=== PATIENT | female | born 1985 | race African-American/Black ===

== ENCOUNTER 2017-05-28 10:31 | Emergency (ER) | payer MEDICAID ==
[2017-05-28 11:35] VITALS: BP 143/99
--- NOTE | 2017-05-28 19:29 | ER Document Report ---
ED Medical Screen (RME) - General Chief Complaint: Possible Overdose Stated Complaint: POSSIBLE OVERDOSE Time Seen by Provider: 05/28/17 10:46 Notes: Patient was found passed out and unresponsive. She was reportedly shooting heroin and she says that she was also taking Xanax.. EMS was called to the scene and gave the patient Narcan 0.5 mg twice at (late entry due to computer/Dragon malfunction at time patient was seen on 2017) . . . at 10:12 and 10:20 am. Patient is awake and alert now and has remained so since receiving Narcan. Patient does not want to be seen, examined, or treated further. She says she just wants to leave. I talked to patient enough to establish that I think she is mentally capable and competent to make decisions about her state of health and her healthcare. I explained to her that she could leave without further care, but that she might leave and pass out again and without proper medical care, she could . Patient understands the risks and still wishes to leave against medical advice, without further workup or care. Abdulkadir Dawkins MD TRAVEL OUTSIDE OF THE [place] IN LAST 30 DAYS: No - Related Data Allergies/Adverse Reactions: hydrocodone [Hydrocodone] Allergy (Severe, Verified 09/04/13 02:32) Anaphylaxis latex Allergy (Unknown, Verified 09/04/13 02:32) Penicillins Allergy (Unknown, Verified 09/04/13 02:32) aloe vera [Aloe Vera] Allergy (Verified 09/04/13 02:32) tight throat citric acid [Citric Acid] Allergy (Verified 09/04/13 02:32) codeine [Codeine] Allergy (Verified 09/04/13 02:32) tight throat tramadol HCl [From Ultram] Allergy (Verified 09/04/13 02:32) peanut butter Allergy (Uncoded 09/04/13 00:48) tight throat Past Medical History - Social History Chew tobacco use (# tins/day): No Frequency of alcohol use: None Drug Abuse: None Family history: Reviewed & Not Pertinent Pulmonary Medical History: Reports: Hx Bronchitis Renal/ Medical History: Denies: Hx Peritoneal Dialysis Skin Medical History: Denies Hx Cellulitis, Denies Hx MRSA Psychiatric Medical History: Reports: Hx Attention Deficit Hyperactivity Disorder, Hx Bipolar Disorder Traumatic Medical History: Reports: Hx Fractures - left him, right shoulder Past Surgical History: Reports: Hx Section, Hx Orthopedic Surgery - left leg - Immunizations Hx Diphtheria, Pertussis, Tetanus Vaccination: Yes Physical Exam - Vital signs Vitals: Temp Resp Pulse Ox 97.4 F 27 H 100 05/28/17 10:34 05/28/17 10:34 05/28/17 10:34 Course - Vital Signs Vital signs: Temp Pulse Resp BP Pulse Ox 97.4 F 10 L 143/99 H 99 05/28/17 10:34 05/28/17 10:38 05/28/17 10:38 05/28/17 10:43 Doctor's Discharge - Discharge Clinical Impression: Accidental overdose of heroin Condition: Stable Disposition: AGAINST MEDICAL ADVICE Referrals: ABEL ESQUIVEL MD [Primary Care Provider] - Follow up as needed
== END 2017-05-28 11:20 | disposition left against medical advice (07) ==
LOC: ER 10:31
DX: T40.1X1A Poisoning by heroin, accidental (unintentional), initial encounter (principal); R55 Syncope and collapse; Z53.20 Procedure and treatment not carried out because of patient's decision for unspecified reasons; Z88.5 Allergy status to narcotic agent; Z91.040 Latex allergy status; Z88.0 Allergy status to penicillin; Z91.018 Allergy to other foods
CPT/HCPCS: 99284

== ENCOUNTER 2019-12-13 20:59 | Emergency (ER) | payer MEDICAID ==
--- NOTE | 2019-12-13 23:08 | ER Document Report ---
ED Medical Screen (RME) - General Chief Complaint: Abdominal Pain Stated Complaint: ABDOMINAL PAIN Time Seen by Provider: 12/13/19 22:31 Primary Care Provider: ABEL ESQUIVEL MD [Primary Care Provider] - Follow up as needed Mode of Arrival: Ambulatory Information source: Patient Notes: HPI; 34-year-old female presents to the emergency room complaining of lower abd ominal pain with foul-smelling discharge and vaginal itching that started earlier today. Denies any nausea, no vomiting. No urinary symptoms. Patient states she had sex with a new partner about 2 weeks ago and that the condom was not fully covering his penis during the encounter. The condom did not come off. Did not take any medications for symptoms. PE: Alert and oriented x3. Lungs: Clear to auscultation without rales, rhonchi, wheezes. Heart: Regular rate rhythm without murmurs, rubs, gallops. Unable to do full assessment in triage. I have greeted and performed a rapid initial assessment of this patient. A comprehensive ED assessment and evaluation of the patient, analysis of test results and completion of the medical decision making process will be conducted by additional ED providers. I have specifically instructed the patient or family members with the patient to immediately return to any nursing staff should anything change in the patient's condition or with their chief complaint. TRAVEL OUTSIDE OF THE [place] IN LAST 30 DAYS: No - Related Data Allergies/Adverse Reactions: hydrocodone [Hydrocodone] Allergy (Severe, Verified 12/13/19 23:02) Anaphylaxis latex Allergy (Unknown, Verified 12/13/19 23:02) Penicillins Allergy (Unknown, Verified 12/13/19 23:02) aloe vera [Aloe Vera] Allergy (Verified 12/13/19 23:02) tight throat citric acid [Citric Acid] Allergy (Verified 12/13/19 23:02) codeine [Codeine] Allergy (Verified 12/13/19 23:02) tight throat tramadol HCl [From Ultram] Allergy (Verified 12/13/19 23:02) peanut butter Allergy (Uncoded 09/04/13 00:48) tight throat Past Medical History - Social History Family history: Reviewed & Not Pertinent Pulmonary Medical History: Reports: Hx Bronchitis Renal/ Medical History: Denies: Hx Peritoneal Dialysis Skin Medical History: Denies Hx Cellulitis, Denies Hx MRSA Psychiatric Medical History: Reports: Hx Attention Deficit Hyperactivity Disorder, Hx Bipolar Disorder Traumatic Medical History: Reports: Hx Fractures - left him, right shoulder Past Surgical History: Reports: Hx Section, Hx Orthopedic Surgery - left leg - Immunizations Hx Diphtheria, Pertussis, Tetanus Vaccination: Yes Physical Exam - Vital signs Vitals: Temp Pulse Resp BP Pulse Ox 98.6 F 63 16 132/68 H 100 12/13/19 22:54 12/13/19 22:54 12/13/19 22:54 12/13/19 22:54 12/13/19 22:54 Course - Vital Signs Vital signs: Temp Pulse Resp BP Pulse Ox 98.6 F 63 16 132/68 H 100 12/13/19 22:54 12/13/19 22:54 12/13/19 22:54 12/13/19 22:54 12/13/19 22:54 Doctor's Discharge - Discharge Referrals: ABEL ESQUIVEL MD [Primary Care Provider] - Follow up as needed
[2019-12-14 00:31] LABS: ABSOLUTE BASOPHILS # (AUTO) 0.1 10^3/uL (0.0-0.2); ABSOLUTE EOSINOPHILS # (AUTO) 0.2 10^3/uL (0.0-0.6); ABSOLUTE LYMPHOCYTES (AUTO) 3.4 10^3/uL (0.5-4.7); ABSOLUTE MONOCYTES (AUTO) 0.7 10^3/uL (0.1-1.4); ABSOLUTE NEUT (AUTO) 3.5 10^3/uL (1.7-8.2); BASOPHILS % (AUTO) 1.2 % (0-2); EOSINOPHILS % (AUTO) 2.4 % (0-6); HEMATOCRIT 28.1 % (36.0-47.0); LYMPHOCYTES % (AUTO) 43.4 % (13-45); MEAN CORPUSCULAR HEMOGLOBIN 24.5 pg (27.0-33.4); MEAN CORPUSCULAR HGB CONC 32.2 g/dL (32.0-36.0); MEAN CORPUSCULAR VOLUME 76 fl (80-97); MONOCYTES % (AUTO) 8.5 % (3-13); PLATELET COUNT 547 10^3/uL (150-450); RED BLOOD COUNT 3.69 10^6/uL (3.72-5.28); SEGMENTED NEUTROPHILS % (AUTO) 44.5 % (42-78); TOTAL CELLS COUNTED % (AUTO) 100 %; WHITE BLOOD COUNT 7.9 10^3/uL (4.0-10.5)
[2019-12-14 00:41] LABS: APPEARANCE,URINE SLIGHTLY-CLOUDY; BILIRUBIN,URINE NEGATIVE (NEGATIVE); COLOR,URINE YELLOW; GLUCOSE, URINE NEGATIVE (NEGATIVE); KETONES,URINE NEGATIVE (NEGATIVE); LEUKOCYTE ESTERASE,URINE NEGATIVE (NEGATIVE); NITRITE,URINE NEGATIVE (NEGATIVE); PROTEIN,URINE NEGATIVE (NEGATIVE); URINE SPECIFIC GRAVITY 1.025
[2019-12-14 00:43] LABS: ALBUMIN 4.3 g/dL (3.5-5.0); ALKALINE PHOSPHATASE 86 U/L (38-126); ASPARTATE AMINO TRANSFERASE 55 U/L (14-36); BILIRUBIN,TOTAL 0.6 mg/dL (0.2-1.3); BLOOD UREA NITROGEN 13 mg/dL (7-20); CALCIUM 9.7 mg/dL (8.4-10.2); CARBON DIOXIDE 25 mmol/L (22-30); GLUCOSE 77 mg/dL (75-110); POTASSIUM 4.5 mmol/L (3.6-5.0); TOTAL PROTEIN 7.7 g/dL (6.3-8.2)
[2019-12-14 00:48] LABS: ANION GAP 6 (5-19); CHLORIDE 106 mmol/L (98-107)
[2019-12-14] MEDS ORDERED: AZITHROMYCIN 250 MG TABLET PO ONE (05:34)
[2019-12-14] MEDS ORDERED: LIDOCAINE 1% INJ-PF (10 MG/ML) 30 ML SDV IM ONE (05:34)
[2019-12-14] MEDS ORDERED: CEFTRIAXONE INJ 250 MG VIAL IM ONE (05:34)
--- NOTE | 2019-12-14 05:59 | RADIOLOGY REPORT (SQ) ---
Ultrasound pelvis limited on 12/14/2019 at 5:10 AM CLINICAL INDICATION: Pelvic pain, abnormal discharge COMPARISON: None FINDINGS: Multiple sonographic images are obtained throughout the pelvis by transabdominal approach only, both transverse and sagittal images are obtained. Uterus measures approximately 10.1 x 4.8 x 6.0 cm. Endometrial stripe measures 1.1 cm in thickness but this is only focally thickened in the upper endometrium. The appearance raises the question of endometrial polyp although this could just represent some blood and clot trapped within the upper portion of the endometrium. Consider short-term follow-up sonohysterogram. The left ovary measures approximately 4.2 x 2.3 x 2.9 cm. Within the left ovary there is a 2.1 x 2.2 x 1.8 cm dominant follicle which should be considered benign with no follow-up recommended. Flow is demonstrated within the left ovary. The right ovary is not visualized. No adnexal mass or fluid collection is noted. No free fluid is noted. IMPRESSION: Small rounded area of increased echogenicity within the upper endometrium raising a question of endometrial polyp. Would recommend at least short-term follow-up sonohysterogram to better evaluate.
[2019-12-14 06:02] LABS: BACTERIA (WET MOUNT) 3+ BACTERIA SEEN; T.VAGINALIS (WET MOUNT) NO TRICHOMONAS SEEN; WBCS (WET MOUNT) FEW WBCS SEEN; YEAST (WET MOUNT) NO YEAST SEEN
[2019-12-14 06:03] LABS: EPITHELIALS (WET MOUNT) 3+ EPITHELIALS SEEN
--- NOTE | 2019-12-14 06:04 | ER Document Report ---
ED General - General Chief Complaint: Vaginal Discharge Stated Complaint: ABDOMINAL PAIN Time Seen by Provider: 12/13/19 22:31 Primary Care Provider: BAEL ESQUIVEL MD [Primary Care Provider] - Follow up as needed Mode of Arrival: Ambulatory Information source: Patient Notes: Patient is a 34-year-old female presents emergency department chief complaint of pelvic pain, abnormal vaginal discharge is been ongoing for the last 2 weeks. Patient reports she had a new partner, she states that she believes he may have given her an STD. Patient denies any dysuria, urinary frequency, fever, chills, nausea, vomiting or diarrhea. Patient reports that her partner was wearing a condom however she states the condom was "not all the way on correctly". TRAVEL OUTSIDE OF THE [place] IN LAST 30 DAYS: No - Related Data Allergies/Adverse Reactions: hydrocodone [Hydrocodone] Allergy (Severe, Verified 12/13/19 23:02) Anaphylaxis latex Allergy (Unknown, Verified 12/13/19 23:02) Penicillins Allergy (Unknown, Verified 12/13/19 23:02) aloe vera [Aloe Vera] Allergy (Verified 12/13/19 23:02) tight throat citric acid [Citric Acid] Allergy (Verified 12/13/19 23:02) codeine [Codeine] Allergy (Verified 12/13/19 23:02) tight throat tramadol HCl [From Ultram] Allergy (Verified 12/13/19 23:02) peanut butter Allergy (Uncoded 09/04/13 00:48) tight throat Past Medical History - General Information source: Patient - Social History Smoking Status: Current Every Day Smoker Frequency of alcohol use: None Drug Abuse: None Family History: Reviewed & Not Pertinent Pulmonary Medical History: Reports: Hx Bronchitis Renal/ Medical History: Denies: Hx Peritoneal Dialysis Skin Medical History: Denies Hx Cellulitis, Denies Hx MRSA Psychiatric Medical History: Reports: Hx Attention Deficit Hyperactivity Disorder, Hx Bipolar Disorder Traumatic Medical History: Reports: Hx Fractures - left him, right shoulder Past Surgical History: Reports: Hx Section, Hx Orthopedic Surgery - left leg - Immunizations Hx Diphtheria, Pertussis, Tetanus Vaccination: Yes Review of Systems - Review of Systems Constitutional: No symptoms reported EENT: No symptoms reported Cardiovascular: No symptoms reported Respiratory: No symptoms reported Gastrointestinal: No symptoms reported Genitourinary: No symptoms reported Female Genitourinary: Vaginal discharge, Vaginal odor Musculoskeletal: No symptoms reported Skin: No symptoms reported Hematologic/Lymphatic: No symptoms reported Neurological/Psychological: No symptoms reported Physical Exam - Vital signs Vitals: Temp Pulse Resp BP Pulse Ox 98.6 F 63 16 132/68 H 100 12/13/19 22:54 12/13/19 22:54 12/13/19 22:54 12/13/19 22:54 12/13/19 22:54 - Notes Notes: PHYSICAL EXAMINATION: GENERAL: Well-appearing, well-nourished and in no acute distress. HEAD: Atraumatic, normocephalic. EYES: Pupils equal round and reactive to light, extraocular movements intact, conjunctiva are normal. ENT: Nares patent, oropharynx clear without exudates. Moist mucous membranes. NECK: Normal range of motion, supple without lymphadenopathy LUNGS: Breath sounds clear to auscultation bilaterally and equal. No wheezes rales or rhonchi. HEART: Regular rate and rhythm without murmurs ABDOMEN: Soft, nontender, nondistended abdomen. No guarding, no rebound. No masses appreciated. Female : REFUSED PELVIC EXAM Musculoskeletal: Normal range of motion, no pitting or edema. No cyanosis. NEUROLOGICAL: Cranial nerves grossly intact. Normal speech, normal gait. Normal sensory, motor exams PSYCH: Normal mood, normal affect. SKIN: Warm, Dry, normal turgor, no rashes or lesions noted. Course - Re-evaluation Re-evalutation: Patient appears well, nontoxic, vital signs reviewed and were within normal limits. Patient's work-up today has been reassuring although she did decline a pelvic exam. She did self swab. She does have bacterial vaginosis. Chlamydia and gonorrhea are pending. An ultrasound was obtained this patient did report that she was having some vaginal discomfort, there was no acute findings on this ultrasound there was a endometrial abnormality that looked like it could be a cyst. A copy of this was provided to the patient, patient will need to have r epeat follow-up on this. Patient verbalized understanding and agreement with plan. Patient treated with azithromycin, Rocephin and will be started on Flagyl. - Vital Signs Vital signs: Temp Pulse Resp BP Pulse Ox 98.3 F 79 12 110/54 L 100 12/14/19 01:28 12/14/19 01:28 12/14/19 01:28 12/14/19 01:28 12/14/19 01:28 - Laboratory Result Diagrams: 12/13/19 23:50 12/13/19 23:50 Laboratory results interpreted by me: 12/13/19 12/13/19 12/13/19 23:50 23:50 23:50 RBC 3.69 L Hgb 9.0 L Hct 28.1 L MCV 76 L MCH 24.5 L RDW 18.0 H Plt Count 547 H Sodium 136.7 L AST 55 H ALT 54 H Urine Urobilinogen 2.0 H Discharge - Discharge Clinical Impression: Vaginal discharge Condition: Stable Disposition: HOME, SELF-CARE Additional Instructions: You were seen in the emergency department tonight for possible STD exposure. You were treated with antibiotics that would cover chlamydia and gonorrhea. You are being started on a medication called Flagyl for bacterial vaginosis. Please take this medication in its entirety and do not stop taking it even if your symptoms resolve. Do not drink any alcohol while taking this medication as it will make you very ill. Please follow-up with the health department for repeat STD testing. Please make sure any and all partners are treated and tested as well. There was an abnormality in your ultrasound that looks like possibly a endometrial polyp. This needs to be followed up, please call your [facility] [employer] and have them repeat this test. A copy of the ultrasound report was given to you. If you are unable to see an [facility] please see the health department. Prescriptions: Metronidazole [Flagyl 500 mg Tablet] 500 mg PO BID #14 tablet Referrals: ABEL ESQUIVEL MD [Primary Care Provider] - Follow up as needed
[2019-12-14 06:24] VITALS: BP 112/64
[2019-12-14 07:27] LABS: CHLAM PCR NOT DETECTED (NOT DETECT)
== END 2019-12-14 06:24 | disposition home or self-care (01) ==
LOC: ER 20:59
DX: N89.8 Other specified noninflammatory disorders of vagina (principal); R10.2 Pelvic and perineal pain; Z20.2 Contact with and (suspected) exposure to infections with a predominantly sexual mode of transmission; Z88.8 Allergy status to other drugs, medicaments and biological substances; Z88.0 Allergy status to penicillin; F17.200 Nicotine dependence, unspecified, uncomplicated
CPT/HCPCS: 99285; 96372; 36415; 87210; 84703; 85025; 80053; 81001; 87491; 87591; 76857; 93976; Q0144; J3490; J0696